=== PATIENT | male | born 1960 | race African-American/Black ===

== ENCOUNTER 2018-12-27 10:01 | Emergency (ER) | payer BC, MEDICAID ==
[~2018-12-27] VITALS: Ht 180.3 cm; Wt 82.0 kg
[~2018-12-27 10:01] MED LIST: ASPI-1073 PO; CARV3.1242; FOLI-43; IBUPROFEN; LISI10TA5
[2018-12-27] MEDS: FUROSEMIDE 40MG/4ML VIAL IV ONE (11:45)
[2018-12-27 11:53] LABS: BASOPHILS % 0.8 % (0.0-2.0); HEMOGLOBIN. 13.9 g/dL (14.0-18.0); LYMPHOCYTES % 21.9 % (20.0-50.0); MEAN CORPUSCULAR HEMOGLOBIN 30.4 pg (28.0-32.0); MEAN CORPUSCULAR VOLUME 91.8 fL (80.0-94.0); MEAN PLATELET VOLUME 9.1 fl (7.4-10.4); MONOCYTES % 11.4 % (2.0-8.0); NEUTROPHILS % 63.9 % (40.0-76.0); PLATELET 161 x1000/uL (130-400); RED BLOOD CELL COUNT 4.57 mill/uL (4.7-6.1); RED CELL DISTRIBUTION WIDTH 15.9 % (11.6-14.6)
[2018-12-27 11:57] LABS: CHLORIDE 100 mEq/L (98-107)
[2018-12-27 12:10] LABS: D-DIMER 5.28 mg/L FEU (<0.50); INR 1.3; PARTIAL THROMBOPLASTIN TIME 26.3 sec (23.4-31.0); PROTHROMBIN TIME 12.7 sec (9.6-11.0)
[2018-12-27] MEDS: ASPIRIN 81MG TABLET PO ONE (12:39)
[2018-12-27 13:35] LABS: CLARITY URINE CLEAR (CLEAR); COLOR URINE YELLOW (YELLOW); KETONES URINE NEGATIVE (NEGATIVE); LEUKOCYTE ESTERASE URINE NEGATIVE (NEGATIVE); NITRITE URINE NEGATIVE (NEGATIVE); OCCULT BLOOD URINE NEGATIVE (NEGATIVE); PROTEIN URINE NEGATIVE (NEGATIVE); SPECIFIC GRAVITY URINE 1.009 (1.005-1.030)
[2018-12-27 13:45] LABS: *AMPHETAMINES SCREEN URINE NEGATIVE (NEGATIVE); *BARBITURATES SCREEN URINE NEGATIVE (NEGATIVE); *BENZODIAZEPINES SCREEN URINE NEGATIVE (NEGATIVE); *COCAINE SCREEN URINE NEGATIVE (NEGATIVE); METHADONE URINE SCREEN NEGATIVE (NEGATIVE); OPIATES URINE SCREEN NEGATIVE (NEGATIVE); PHENCYCLIDINE URINE SCREEN NEGATIVE (NEGATIVE)
[2018-12-27 13:46] LABS: CANNABINOID URINE SCREEN NEGATIVE (NEGATIVE)
[2018-12-27 18:50] VITALS: BP 114/79
== END 2018-12-27 19:42 | disposition short-term general hospital (02) ==
LOC: ER 10:01 → EDBEDREQTM 13:44 → EDBEDREQ 13:44 → CANRESERV 14:12 → ENRESERV 14:12 → CANRESERV 14:15 → ER 19:42 → CANRESERV 19:54 → ENRESERV 19:54 → CANRESERV 22:07 → ENRESERV 22:07 → CANBEDREQ 22:13
DX: I42.9 Cardiomyopathy, unspecified (principal); I13.0 Hypertensive heart and chronic kidney disease with heart failure and stage 1 through stage 4 chronic kidney disease, or unspecified chronic kidney disease; N18.9 Chronic kidney disease, unspecified; I50.9 Heart failure, unspecified; R73.9 Hyperglycemia, unspecified; R74.0 Nonspecific elevation of levels of transaminase and lactic acid dehydrogenase [LDH]; R60.0 Localized edema; E87.79 Other fluid overload; M79.89 Other specified soft tissue disorders; I25.2 Old myocardial infarction; Z98.890 Other specified postprocedural states; Z79.82 Long term (current) use of aspirin
CPT/HCPCS: 36415; 71045; 78582; 80053; 80305; 81003; 83880; 84484; 85025; 85379; 85610; 85730; 93005; 93971; 96374; 99285; A9540; A9558; J1940